=== PATIENT | male | born 1970 | race Two or more races ===

== ENCOUNTER 2016-09-12 11:29 | Emergency (ER) | payer SELFPAY ==
[~2016-09-12] VITALS: Ht 165.1 cm; Wt 72.6 kg
[2016-09-12] MEDS ORDERED: IV NORMAL SALINE 1000ML BAG 1,000 ML IV SCH (11:43)
[2016-09-12] MEDS ORDERED: HYDROmorphone 2 MG/ML VIAL IV/SQ PRN (11:45)
[2016-09-12] MEDS ORDERED: ONDANSETRON PF 4 MG/2 ML VIAL. IV ONE (11:45)
[2016-09-12] MEDS ORDERED: 0.9 % SODIUM CHLORIDE 10 ML DISP.SYRIN. IV PRN (11:45)
--- NOTE | 2016-09-12 11:51 | PHYS DOC ---
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 Patient says that pain began spontaneously without a specific injury is described as sharp and stabbing with radiation from the back to the right lower abdomen. He denies any fevers, chills but he has had some nausea without vomiting. No diarrhea no constipation. Patient denies any UTI symptoms, hematuria or urgency frequency or penile discharge. Patient also denies any history of sexual transmitted diseases or prior trauma. Patient says the pain is just gotten progressively worse not changed with position. It is not getting more comfortable in a supine position. Patient's pain is not really change with food. It is also not changed [id number] medications. Differential diagnosis considered on arrival include back pain source of discomfort to include cauda equina, renal disease, abdominal aneurysm, fracture of the spine, tumors in the bones considerably considering specifically multiple myeloma and ecchymosis., Infection apical abscess from IV drug use. Patient also could have an issue with his renal system to include kidney stone, pyonephritis, UTI, or intra-abdominal catastrophe pancreatitis cholelithiasis, cholecystitis, appendicitis, or bowel structures. At this point patient will be given IV fluids and pain medications antiemetics a CAT scan without contrast to be completed to rule out kidney stone. Patient also had a urinalysis completed to ensure that there is no signs of infection. Review of Systems Review of Systems Constitutional: Denies fever or chills [] Eyes: Denies change in visual acuity, redness, or eye pain [] HENT: Denies nasal congestion or sore throat [] Respiratory: Denies cough or shortness of breath [] Cardiovascular: No additional information not addressed in HPI [] GI: This patient has mild abdominal pain with nausea without vomiting bloody stools diarrhea or constipation. : Denies dysuria or hematuria [] Musculoskeletal: This patient does complain of back pain that radiates around to the abdomen. He denies any other joint pain or swelling Integument: Denies rash or skin lesions [] Neurologic: Denies headache, focal weakness or sensory changes [] Endocrine: Denies polyuria or polydipsia [] Current Medications Current Medications Current Medications Medications (Trade) Dose Ordered Sig/Boyd Start Time Stop Time Status Last Admin Dose Admin Hydromorphone HCl (Dilaudid) 1 mg PRN Q15MIN PRN 09/12/16 11:45 09/13/16 11:44 09/12/16 12:01 1 MG Ondansetron HCl (Zofran) 4 mg 1X ONCE 09/12/16 11:45 09/12/16 11:51 DC 09/12/16 12:01 4 MG Sodium Chloride (Normal Saline Flush) 10 ml QSHIFT PRN 09/12/16 11:45 09/12/16 12:00 10 ML Allergies Allergies Allergies Coded Allergies Type Severity Reaction Last Updated Verified No Known Drug Allergies 09/12/16 No Physical Exam Physical Exam Constitutional: Well developed, well nourished, patient obvious discomfort sitting with his at the bedside unable to get a position of comfort. HENT: Normocephalic, atraumatic, bilateral external ears normal, oropharynx moist, no oral exudates, nose normal. [] Eyes: PERRLA, EOMI, conjunctiva normal, no discharge. [] Neck: Normal range of motion, no tenderness, supple, no stridor. [] Cardiovascular:Heart rate regular rhythm, no murmur [] Lungs & Thorax: Bilateral breath sounds clear to auscultation [] Abdomen: Patient has tenderness to the right lower quadrant without signs of rash. There is no Louis's or McBurney's point tenderness to palpation. Patient has no Coffey Cadena sign no guarding rebound or organomegaly. Is no pulsatile mass. Skin: Warm, dry, no erythema, no rash. [] Back: He has tenderness along the erector spinae on the right with no obvious rash or trauma. There is no midline tenderness to palpation. There is no erythema or CVA tenderness upon palpation. Extremities: No tenderness, no cyanosis, no clubbing, ROM intact, no edema. [] Neurologic: Alert and oriented X 3, normal motor function, normal sensory function, no focal deficits noted. [] Psychologic: Affect normal, judgement normal, mood normal. [] Current Patient Data Vital Signs Vital Signs Date Time Temp Pulse Resp B/P (MAP) Pulse Ox O2 Delivery O2 Flow Rate FiO2 09/12/16 12:01 Room Air 09/12/16 11:35 98.3 67 18 166/88 (114) 96 98.3 Lab Values Laboratory Tests Test 09/12/16 11:39 09/12/16 12:13 Urine Collection Type Void Urine Color Yellow Urine Clarity Hazy Urine pH 7.5 Urine Specific Farrell 1.025 Urine Protein Negative mg/dL (NEG-TRACE) Urine Glucose (UA) Negative mg/dL (NEG) Urine Ketones (Stick) Negative mg/dL (NEG) Urine Blood Negative (NEG) Urine Nitrite Negative (NEG) Urine Bilirubin Negative (NEG) Urine Urobilinogen Dipstick 0.2 mg/dL (0.2 mg/dL) Urine Leukocyte Esterase Negative (NEG) Urine RBC Rare /HPF (0-2) Urine WBC Occ /HPF (0-4) Urine Squamous Epithelial Cells None /LPF Urine Amorphous Sediment Present /HPF Urine Bacteria 0 /HPF (0-FEW) Urine Mucus Mod /LPF White Blood Count 4.4 x10^3/uL (4.0-11.0) Red Blood Count 4.56 x10^6/uL (4.30-5.70) Hemoglobin 14.5 g/dL (13.0-17.5) Hematocrit 40.5 % (39.0-53.0) Mean Corpuscular Volume 89 fL (79-100) Mean Corpuscular Hemoglobin 32 pg (25-35) Mean Corpuscular Hemoglobin Concent 36 g/dL (31-37) Red Cell Distribution Width 13.1 % (11.5-14.5) Platelet Count 140 x10^3/uL (140-400) Neutrophils (%) (Auto) 55 % (31-73) Lymphocytes (%) (Auto) 30 % (24-48) Monocytes (%) (Auto) 8 % (0-9) Eosinophils (%) (Auto) 6 % (0-3) H Basophils (%) (Auto) 1 % (0-3) Neutrophils # (Auto) 2.4 x10^3uL (1.8-7.7) Lymphocytes # (Auto) 1.3 x10^3/uL (1.0-4.8) Monocytes # (Auto) 0.4 x10^3/uL (0.0-1.1) Eosinophils # (Auto) 0.2 x10^3/uL (0.0-0.7) Basophils # (Auto) 0.0 x10^3/uL (0.0-0.2) Sodium Level 143 mmol/L (136-145) Potassium Level 3.4 mmol/L (3.5-5.1) L Chloride Level 107 mmol/L (98-107) Carbon Dioxide Level 26 mmol/L (21-32) Anion Gap 10 (6-14) Blood Urea Nitrogen 22 mg/dL (8-26) Creatinine 0.7 mg/dL (0.7-1.3) Estimated GFR (Cockcroft-Gault) 120.4 BUN/Creatinine Ratio 31 (6-20) H Glucose Level 113 mg/dL (70-99) H Calcium Level 8.4 mg/dL (8.5-10.1) L Total Bilirubin 0.6 mg/dL (0.2-1.0) Aspartate Amino Transferase (AST) 22 U/L (15-37) Alanine Aminotransferase (ALT) 34 U/L (16-63) Alkaline Phosphatase 71 U/L (46-116) Total Protein 6.7 g/dL (6.4-8.2) Albumin 3.4 g/dL (3.4-5.0) Albumin/Globulin Ratio 1.0 (1.0-1.7) Lipase 95 U/L (73-393) Laboratory Tests 09/12/16 12:13 Laboratory Tests 09/12/16 12:13 EKG EKG [] Radiology/Procedures Radiology/Procedures [] IMAGING REPORT Signed PATIENT: PETER BURNS ACCOUNT: [id number] : 1970 LOCATION: ER AGE: 46 SEX: M EXAM STATUS: REG ER ORD. PHYSICIAN: ULISES GIBSON MD REASON: right flank pain PROCEDURE: CT ABDOMEN PELVIS WO CONTRAST CT abdomen and pelvis without contrast. History: Right flank pain CT scan of the abdomen and pelvis was done without contrast. Lung bases are free of infiltrates. There is a small 4 mm pulmonary nodule on image #7 of series 2 in the right lower lobe. There is a 5 mm nodule on image #3 of series 2 in the right middle lobe. Fleischner Society guidelines would recommend and optional one year follow-up for high risk individuals. There is mild atelectasis in the left lung base. A liver lesion is not identified. Spleen is unremarkable. Adrenal glands are normal. A pancreatic lesion is not identified. There is no mass or hydronephrosis and the kidneys. A ureteral calculus is not identified. There is no bowel obstruction or ascites. Bowel pattern is normal. Appendix is normal. There is not evidence of a diverticulitis. Impression: 1. No renal or ureteral calculus. 2. Normal appendix. 3. No acute finding noted in the abdomen or pelvis. 4. Small pulmonary nodules. One or more of the following individualized dose reduction techniques were utilized for this examination: 1. Automated exposure control 2. Adjustment of the mA and/or kV according to patient size 3. Use of iterative reconstruction technique DICTATED and SIGNED BY: SPENSER AVILA MD DATE: 09/12/16 5295 CC: ULISES GIBSON MD; NO PCP ~ Course & Med Decision Making Course & Med Decision Making Pertinent Labs and Imaging studies reviewed. (See chart for details) I reviewed patient's laboratory work, physical and history complaint. Time 12:45 PM Patient tells me that their symptoms given during CC are improved. We reviewed labs and radiology reports port is still pending at this time at the bedside.. [] Time is now 1:26 PMPatient tells me that their symptoms given during CC are improved. We reviewed labs and radiology reports with patient and any family at bedside. CT scan reveals no kidney stones only some small pulmonary nodules that will need repeat evaluation in 1 year's time. Patient is low risk for lung cancer as he is a nonsmoker. Urinalysis is clear of signs of infection. Patient has no evidence of CRAFTI. Patient likely has muscular skeletal lower back pain from the nature of the work that he does. He will be provided anti- inflammatories, muscle relaxant, and some of her breakthrough pain. Impression: Musculoskeletal low back pain. Disposition: PCP follow-up referral to physical therapy and supportive medications provided to treat patient's acute symptoms. Patient given precautions about pulmonary nodules and asked to follow-up in 1 year for repeat evaluation Dragon Disclaimer Dragon Disclaimer This electronic medical record was generated, in whole or in part, using a voice recognition dictation system. Departure Departure Impression: Primary Impression: Lower back pain Additional Impressions: Sprain, low back Pulmonary nodules/lesions, multiple Disposition: 01 HOME, SELF-CARE Condition: IMPROVED Patient Instructions: Back Pain, Adult, Low Back Strain with Rehab-SportsMed Additional Instructions: Please follow-up with your primary care doctor for reevaluation in 4872 hours if symptoms continue. I would advise you to follow-up with your PCP for physical therapy referral or return here if you have any questions or concerns. Return specifically if he developed any numbness and tingling to the lower groin area or bowel or bladder incontinence or weakness in her lower legs. This return if you have any night sweats or fevers greater 102.2 with UTI symptoms. Scripts Diazepam (VALIUM) 5 Mg Tablet 5 MG PO TID for MUSCLE SPASMS for 5 Days, #15 TAB Prov: ULISES GIBSON MD 09/12/16 Naproxen (NAPROSYN) 500 Mg Tablet 1 TAB PO BID, #14 TAB 1 Refill Prov: ULISES GIBSON MD 09/12/16 Hydrocodone Bit/Acetaminophen (HYDROCODONE-APAP 5-325 ) 1 Each Tablet 1-2 TAB PO PRN Q6HRS Y for PAIN for 5 Days, #10 TAB 0 Refills Prov: ULISES GIBSON MD 09/12/16 Problem Qualifiers ULISES GIBSON MD Sep 12, 2016 11:51
[2016-09-12 12:05] LABS: BACTERIA,URINE 0 /HPF (0-FEW); BILIRUBIN,URINE NEGATIVE (NEG); GLUCOSE,URINE NEGATIVE (NEG); NITRITE,URINE NEGATIVE (NEG); PH,URINE 7.5; PROTEIN,URINE NEGATIVE (NEG-TRACE); RBC,URINE RARE /HPF (0-2); UROBILINOGEN,URINE 0.2 mg/dL (0.2 mg/dL); WBC,URINE OCC /HPF (0-4)
[2016-09-12 12:20] LABS: BASO % 1 % (0-3); EOS % 6 % (0-3); HEMATOCRIT 40.5 % (39.0-53.0); HEMOGLOBIN 14.5 g/dL (13.0-17.5); LYMPH # 1.3 x10^3/uL (1.0-4.8); LYMPH % 30 % (24-48); MEAN CORPUSCULAR HEMOGLOBIN 32 pg (25-35); MEAN CORPUSCULAR HGB CONC 36 g/dL (31-37); MEAN CORPUSCULAR VOLUME 89 fL (79-100); MONO % 8 % (0-9); NEUT % 55 % (31-73); PLATELET COUNT 140 x10^3/uL (140-400); RED BLOOD COUNT 4.56 x10^6/uL (4.30-5.70); RED CELL DISTRIBUTION WIDTH 13.1 % (11.5-14.5); WHITE BLOOD COUNT 4.4 x10^3/uL (4.0-11.0)
[2016-09-12 12:27] LABS: CALCIUM 8.4 mg/dL (8.5-10.1); CREATININE 0.7 mg/dL (0.7-1.3); GFR 120.4; POTASSIUM 3.4 mmol/L (3.5-5.1)
[2016-09-12 12:33] LABS: ALBUMIN 3.4 g/dL (3.4-5.0); TOTAL BILIRUBIN 0.6 mg/dL (0.2-1.0); TOTAL PROTEIN 6.7 g/dL (6.4-8.2)
--- NOTE | 2016-09-12 13:04 | RAD ---
CT abdomen and pelvis without contrast. History: Right flank pain CT scan of the abdomen and pelvis was done without contrast. Lung bases are free of infiltrates. There is a small 4 mm pulmonary nodule on image #7 of series 2 in the right lower lobe. There is a 5 mm nodule on image #3 of series 2 in the right middle lobe. Fleischner Society guidelines would recommend and optional one year follow-up for high risk individuals. There is mild atelectasis in the left lung base. A liver lesion is not identified. Spleen is unremarkable. Adrenal glands are normal. A pancreatic lesion is not identified. There is no mass or hydronephrosis and the kidneys. A ureteral calculus is not identified. There is no bowel obstruction or ascites. Bowel pattern is normal. Appendix is normal. There is not evidence of a diverticulitis. Impression: 1. No renal or ureteral calculus. 2. Normal appendix. 3. No acute finding noted in the abdomen or pelvis. 4. Small pulmonary nodules. One or more of the following individualized dose reduction techniques were utilized for this examination: 1. Automated exposure control 2. Adjustment of the mA and/or kV according to patient size 3. Use of iterative reconstruction technique
[2016-09-12] MEDS ORDERED: DIAZ5TAB PO (13:32)
[2016-09-12] MEDS ORDERED: HYDR-2758 PO (13:32)
[2016-09-12] MEDS ORDERED: NAPR500T PO (13:32)
[2016-09-12 13:45] VITALS: BP 112/56
== END 2016-09-12 13:45 | disposition home or self-care (01) ==
LOC: ER 11:29
DX: S33.5XXA Sprain of ligaments of lumbar spine, initial encounter (principal); R10.31 Right lower quadrant pain; R91.8 Other nonspecific abnormal finding of lung field; X58.XXXA Exposure to other specified factors, initial encounter; Y93.89 Activity, other specified; Y92.89 Other specified places as the place of occurrence of the external cause; Y99.8 Other external cause status
CPT/HCPCS: 36415; 74176; 80053; 81001; 83690; 85027; 96361; 96374; 96375; 99285; J1170; J2405; J7030